=== PATIENT | male | born 1960 | race Caucasian/White ===

== ENCOUNTER 2016-05-14 13:07 | Inpatient (IN) | payer BC ==
[~2016-05-14 13:07] MED LIST: ALPRAZOLAM ER1 M1 PO; ANTIVERT12.5 MG PO; KEFLEX250 M1 PO; NORCO 5-325 TA1 EACH PO; PREDNISONE20 M1 PO; SILVADENE20 GM TP; XANAX0.5 M1 PO; XANAX1 MG PO
[2016-05-14 13:36] LABS: BASO % 0.5 % (0-2); EOS % 1.6 % (0-7); EOSINOPHIL ABSOLUTE COUNT 0.1 tho/cmm (0.0-0.7); HCT-HEMATOCRIT 48.5 % (36.0-53.5); HGB-HEMOGLOBIN 16.8 gm/dl (13.5-17.0); IMMATURE GRANULOCYTES ABSOLUTE 0.02 tho/cmm (0-0.03); IMMATURE GRANULOCYTES PERCENT 0.2 % (0-0.3); LYMPH % 33.4 % (20-45); LYMPH ABSOLUTE COUNT 2.9 tho/cmm (0.8-4.5); MCH (MEAN CORPUSCULAR HGB) 31.6 pg (28.0-32.0); MCHC MEAN CORPUSCULAR HGB CONC 34.6 % (32.0-36.0); MCV (MEAN CELL VOLUME) 91.2 fl (82.0-96.0); MEAN PLATELET VOLUME 10.6 cmc (9.4-12.4); MONO % 6.6 % (0-12); MONOCYTE ABSOLUTE COUNT 0.6 tho/cmm (0.0-1.2); NEUTROPHIL ABSOLUTE COUNT 4.9 tho/cmm (1.6-8.0); NEUTROPHIL-AUTOMATED 4.9 tho/cmm (1.6-8.0); NEUTROPHILS % 57.7 % (40-80); PLATELET COUNT 202 tho/cmm (150-450); RED BLOOD COUNT 5.32 mil/cmm (4.40-5.70); RED CELL DISTRIBUTION WIDTH 12.7 % (12.4-16.4); WHITE BLOOD COUNT 8.5 tho/cmm (4.0-10.0)
[2016-05-14 13:43] LABS: URINE BILIRUBIN NEGATIVE (NEG); URINE BLOOD SMALL (NEG); URINE GLUCOSE (UA) NEGATIVE (NEG); URINE KETONE NEGATIVE (NEG); URINE LEUKOCYTE ESTERASE NEGATIVE (NEG); URINE NITRITE NEGATIVE (NEG); URINE PROTEIN NEGATIVE (NEG)
[2016-05-14 13:47] LABS: URINE APPEARANCE CLEAR; URINE COLOR YELLOW
[2016-05-14 13:49] LABS: URINE EPITHELIAL CELLS 0 /[HPF] (0-10); URINE MUCUS 1+; URINE RBC 0-1 /[HPF] (0-5); URINE WBC 0-1 /[HPF] (0-5)
[2016-05-14 13:50] LABS: ALBUMIN 3.7 g/dl (3.5-5.0); ALKALINE PHOSPHATASE 93 U/L (33-138); ALT/SGPT 24 U/L (12-78); BILIRUBIN,TOTAL 0.4 mg/dl (0.0-1.5); BLOOD UREA NITROGEN 10 mg/dl (6-24); CALCIUM 8.7 mg/dl (8.5-10.5); CARBON DIOXIDE-VENOUS 23 mmol/L (22-32); CHLORIDE 112 mmol/l (96-110); CREATININE 1.03 mg/dl (0.60-1.30); GLUCOSE 111 mg/dL (70-110); LIPASE 717 U/L (73-393); SODIUM 143 mmol/L (135-145); eGFR VALUE FOR BLACK >90 mL/Min
[2016-05-14 13:57] LABS: ANION GAP 12 mmol/L (0-20); AST/SGOT 24 U/L (10-40); POTASSIUM 4.1 mmol/L (3.7-5.1)
[2016-05-14] MEDS ORDERED: MULTIVITAMINS1 EAC6 PO (14:31)
--- NOTE | 2016-05-14 19:01 | NUR ---
VIRTUAL CARE NOTE: PT. IN BED AWAKE AND STATES IS HAVING A LOT OF ABD. PAIN. JUST FINISHED WITH [facility] [employer] FOR SCAN. INSTRUCTION REVIEWED ON DIET, NOT TO DRINK ANYTHING UNTIL AFTER CT SCAN IS COMPLETE. RN ON UNIT THIS PAGED REGARDING PAIN MED NEED. INSTRUCTED TO CALL FOR FURTHER NEEDS. STATES VERBAL AGREEMENT.
[2016-05-15 06:07] LABS: BASO % 0.2 % (0-2); EOS % 1.3 % (0-7); EOSINOPHIL ABSOLUTE COUNT 0.1 tho/cmm (0.0-0.7); HCT-HEMATOCRIT 41.3 % (36.0-53.5); IMMATURE GRANULOCYTES ABSOLUTE 0.02 tho/cmm (0-0.03); IMMATURE GRANULOCYTES PERCENT 0.2 % (0-0.3); LYMPH % 31.2 % (20-45); LYMPH ABSOLUTE COUNT 2.6 tho/cmm (0.8-4.5); MCH (MEAN CORPUSCULAR HGB) 31.2 pg (28.0-32.0); MCHC MEAN CORPUSCULAR HGB CONC 33.9 % (32.0-36.0); MEAN PLATELET VOLUME 10.4 cmc (9.4-12.4); MONOCYTE ABSOLUTE COUNT 0.8 tho/cmm (0.0-1.2); NEUTROPHIL ABSOLUTE COUNT 4.7 tho/cmm (1.6-8.0); NEUTROPHIL-AUTOMATED 4.7 tho/cmm (1.6-8.0); NEUTROPHILS % 57.1 % (40-80); PLATELET COUNT 170 tho/cmm (150-450); RED BLOOD COUNT 4.49 mil/cmm (4.40-5.70); RED CELL DISTRIBUTION WIDTH 12.7 % (12.4-16.4); WHITE BLOOD COUNT 8.2 tho/cmm (4.0-10.0)
[2016-05-15 06:21] LABS: ALB/GLOB RATIO 0.9 (0.8-2.0); ALBUMIN 2.7 g/dl (3.5-5.0); ALKALINE PHOSPHATASE 97 U/L (33-138); AMYLASE 74 U/L (20-90); ANION GAP 11 mmol/L (0-20); BILIRUBIN,DIRECT 0.1 mg/dl (0.0-0.3); BILIRUBIN,INDIRECT 0.3 mg/dL (0.0-1.0); BILIRUBIN,TOTAL 0.4 mg/dl (0.0-1.5); BLOOD UREA NITROGEN 7 mg/dl (6-24); CALCIUM 7.5 mg/dl (8.5-10.5); CARBON DIOXIDE-VENOUS 23 mmol/L (22-32); CHLORIDE 112 mmol/l (96-110); CREATININE 0.85 mg/dl (0.60-1.30); GLUCOSE 84 mg/dL (70-110); POTASSIUM 4.1 mmol/L (3.7-5.1); SODIUM 142 mmol/L (135-145); eGFR VALUE FOR BLACK >90 mL/Min
[2016-05-15 06:24] LABS: ALT/SGPT 57 U/L (12-78); AST/SGOT 60 U/L (10-40); LIPASE 268 U/L (73-393)
[2016-05-15 10:43] LABS: PROTHROMBIN TIME 11.1 SECONDS (9.0-13.6)
--- NOTE | 2016-05-15 13:39 | NUR ---
virtual care note: pt is in good spirits. heparin drip in place, also costumed character. pt states he is very hungry and is hoping for food. has been doing clear liquids this am, so far tolerated well. wants to have his diet advanced. paged his RN to let her know. pt converses appropriately. no anxiety or distress noted at this time. will continue to monitor. electronic chart reviewed.
[2016-05-15 15:18] LABS: FERRITIN 188 ng/ml (22-388)
[2016-05-15 16:02] LABS: IRON BINDING CAPACITY 255 ug/dl (250-450)
[2016-05-15 16:06] LABS: IRON 118 ug/dl (49-181)
[2016-05-16 05:23] LABS: BASO % 0.4 % (0-2); EOS % 1.8 % (0-7); EOSINOPHIL ABSOLUTE COUNT 0.1 tho/cmm (0.0-0.7); HCT-HEMATOCRIT 40.5 % (36.0-53.5); HGB-HEMOGLOBIN 13.8 gm/dl (13.5-17.0); IMMATURE GRANULOCYTES ABSOLUTE 0.01 tho/cmm (0-0.03); IMMATURE GRANULOCYTES PERCENT 0.1 % (0-0.3); LYMPH % 46.2 % (20-45); LYMPH ABSOLUTE COUNT 3.1 tho/cmm (0.8-4.5); MCH (MEAN CORPUSCULAR HGB) 31.3 pg (28.0-32.0); MCHC MEAN CORPUSCULAR HGB CONC 34.1 % (32.0-36.0); MCV (MEAN CELL VOLUME) 91.8 fl (82.0-96.0); MONO % 8.8 % (0-12); MONOCYTE ABSOLUTE COUNT 0.6 tho/cmm (0.0-1.2); NEUTROPHIL ABSOLUTE COUNT 2.8 tho/cmm (1.6-8.0); NEUTROPHIL-AUTOMATED 2.8 tho/cmm (1.6-8.0); NEUTROPHILS % 42.7 % (40-80); PLATELET COUNT 157 tho/cmm (150-450); RED BLOOD COUNT 4.41 mil/cmm (4.40-5.70); RED CELL DISTRIBUTION WIDTH 12.7 % (12.4-16.4); WHITE BLOOD COUNT 6.7 tho/cmm (4.0-10.0)
[2016-05-16 05:27] LABS: ALBUMIN 2.8 g/dl (3.5-5.0); ALKALINE PHOSPHATASE 87 U/L (33-138); ALT/SGPT 42 U/L (12-78); ANION GAP 10 mmol/L (0-20); AST/SGOT 27 U/L (10-40); BILIRUBIN,TOTAL 0.2 mg/dl (0.0-1.5); BLOOD UREA NITROGEN 9 mg/dl (6-24); CALCIUM 7.9 mg/dl (8.5-10.5); CARBON DIOXIDE-VENOUS 25 mmol/L (22-32); CHLORIDE 115 mmol/l (96-110); CREATININE 0.86 mg/dl (0.60-1.30); GLUCOSE 94 mg/dL (70-110); SODIUM 146 mmol/L (135-145); eGFR VALUE FOR BLACK >90 mL/Min
--- NOTE | 2016-05-16 11:42 | NUR ---
virtual care note: pt sitting up in his chair, again in good spirits. states he had his ultrasound this morning and he's hungry. lunch tray gets delivered during our conversation. he states he is hoping to go home tomorrow--d/w pt the likelihood of discharging on an anticoagulant, and he is agreeable to this. he verbalizes an understanding of this need, d/t the possible thrombus in his liver area. will continue to monitor. electronic chart reviewed.
== END 2016-05-16 16:45 | DRG 392 ==
LOC: EDMED 13:07 → EMR2 15:55 → 5WD 17:29
PROVIDERS: Emergency Medicine; Internal Medicine; Specialist; ADMIT Family Medicine
DX: R10.9 Unspecified abdominal pain (principal); E66.9 Obesity, unspecified; F41.9 Anxiety disorder, unspecified
CPT/HCPCS: C9113; G0009; J1170; J1644; J2270; J2405; J7030; Q9967